=== PATIENT | male | born 1960 | race Caucasian/White ===

== ENCOUNTER 2018-06-14 11:06 | Outpatient (REF) | payer BC, SELFPAY ==
[2018-06-14 22:36] LABS: COMMENT (LAB VIEW ONLY) 113.76 mg/dL; Microalb ug/mg Crea 7.6 ug/mg Cr
== END 2018-06-14 11:26 ==
LOC: NCHCN 11:06
PROVIDERS: Visit Provider Registered Nurse
DX: E11.9 Type 2 diabetes mellitus without complications (principal)
CPT/HCPCS: 82043; 82570

== ENCOUNTER 2018-10-17 10:57 | Outpatient (REF) | payer BC, SELFPAY ==
[2018-10-17 21:28] LABS: Anion Gap 8.9 mmol/L (3-11); BUN 16 mg/dL (7-18); CO2 29.1 mmol/L (21.0-32.0); Calcium 9.7 mg/dL (8.5-10.1); Chloride 102 mmol/L (98-107); Cholesterol 217 mg/dL (50-200); Glucose 99 mg/dL (70-100); HDL Cholesterol 46 mg/dL (40-60); LDL CHOLESTEROL 148 mg/dL (<100); Potassium 4.1 mmol/L (3.5-5.1); Sodium 140 mmol/L (136-145); Triglyceride 126 mg/dL (30-150)
== END 2018-10-17 11:17 ==
LOC: NCHCN 10:57
PROVIDERS: Visit Provider Registered Nurse
DX: I10 Essential (primary) hypertension (principal); E66.01 Morbid (severe) obesity due to excess calories
CPT/HCPCS: 80048; 80061; 83721

== ENCOUNTER 2019-08-16 17:21 | Outpatient (REF) | payer BC, SELFPAY ==
[2019-08-16 17:20] LABS: COMMENT (LAB VIEW ONLY) 67.62 mg/dL; Microalb ug/mg Crea 9.5 ug/mg Cr
== END 2019-08-16 17:41 ==
LOC: NCHCN 17:21
PROVIDERS: Visit Provider Registered Nurse
DX: E11.9 Type 2 diabetes mellitus without complications (principal); I10 Essential (primary) hypertension
CPT/HCPCS: 82043; 82570

== ENCOUNTER 2020-04-04 10:46 | Outpatient (REF) | payer BC, SELFPAY ==
[2020-04-04 21:38] LABS: ALT 33 U/L (16-63); AST 16 U/L (15-37); Albumin 3.9 g/dL (3.4-5.0); Alkaline Phosphatase 85 U/L (46-116); Anion Gap 8.2 mmol/L (3-11); BUN 14 mg/dL (7-18); Bilirubin, Total 0.4 mg/dL (0.2-1.0); CO2 26.8 mmol/L (21.0-32.0); CREATININE 0.83 mg/dL (0.70-1.30); Calcium 9.5 mg/dL (8.5-10.1); Calculated LDL 120 mg/dL (<100); Chloride 103 mmol/L (98-107); Cholesterol 197 mg/dL (<200); Glucose 158 mg/dL (74-106); HDL Cholesterol 38 mg/dL (40-60); Potassium 4.4 mmol/L (3.5-5.1); Sodium 138 mmol/L (136-145); Total Protein 7.2 g/dL (6.4-8.2); Triglyceride 196 mg/dL (<150)
[2020-04-08 09:45] LABS: Hepatitis C Ab w Rflx HCV PCR Negative (Negative)
== END 2020-04-04 11:06 ==
LOC: NCHCN 10:46
PROVIDERS: Visit Provider Registered Nurse
DX: E11.9 Type 2 diabetes mellitus without complications (principal); I10 Essential (primary) hypertension; E66.9 Obesity, unspecified
CPT/HCPCS: 80053; 80061; 86803

== ENCOUNTER 2021-04-18 17:06 | Outpatient (REF) | payer BC, SELFPAY ==
[2021-04-18 21:01] LABS: ALT 36 U/L (16-63); AST 19 U/L (15-37); Albumin 4.3 g/dL (3.4-5.0); Alkaline Phosphatase 78 U/L (46-116); BUN 19 mg/dL (7-18); Bilirubin, Total 0.3 mg/dL (0.2-1.0); Calcium 9.6 mg/dL (8.5-10.1); Calculated LDL 123 mg/dL (<100); Chloride 103 mmol/L (98-107); Cholesterol 201 mg/dL (<200); Glucose 113 mg/dL (74-106); HDL Cholesterol 39 mg/dL (40-60); Potassium 4.1 mmol/L (3.5-5.1); Sodium 140 mmol/L (136-145); Total Protein 7.4 g/dL (6.4-8.2); Triglyceride 195 mg/dL (<150)
[2021-04-18 21:08] LABS: COMMENT (LAB VIEW ONLY) 62.52 mg/dL; Microalb ug/mg Crea 2.7 ug/mg Cr
== END 2021-04-18 17:07 | disposition home or self-care (01) ==
LOC: NCHCN 17:06
PROVIDERS: Visit Provider Registered Nurse
DX: E11.9 Type 2 diabetes mellitus without complications (principal); E66.9 Obesity, unspecified
CPT/HCPCS: 80053; 80061; 82043; 82570

== ENCOUNTER 2023-02-11 16:59 | Outpatient (REF) | payer BC, SELFPAY ==
[2023-02-11 20:29] LABS: COMMENT (LAB VIEW ONLY) 48.17 mg/dL
== END 2023-02-11 17:00 | disposition home or self-care (01) ==
LOC: NCHCN 16:59
PROVIDERS: Visit Provider Registered Nurse
DX: E11.9 Type 2 diabetes mellitus without complications (principal)
CPT/HCPCS: 82043; 82570

== ENCOUNTER 2023-12-07 12:00 | Outpatient (REF) | payer BC, SELFPAY ==
[2023-12-07 18:23] LABS: MRSA PCR Negative (Negative)
== END 2023-12-07 12:01 | disposition home or self-care (01) ==
LOC: NCHCN 12:00
PROVIDERS: Visit Provider Family Medicine
DX: Z01.818 Encounter for other preprocedural examination (principal)
CPT/HCPCS: 87641

== ENCOUNTER 2025-04-23 16:03 | Outpatient (REF) | payer BC, SELFPAY ==
[2025-04-23 21:31] LABS: COMMENT (LAB VIEW ONLY) 46.09 mg/dL; Microalb ug/mg Crea 45.6 ug/mg Cr
== END 2025-04-23 16:04 | disposition home or self-care (01) ==
LOC: NCHCN 16:03
PROVIDERS: Visit Provider Family Medicine
DX: E11.9 Type 2 diabetes mellitus without complications (principal)
CPT/HCPCS: 82043; 82570